=== PATIENT | male | born 1980 | race Caucasian/White ===

== ENCOUNTER → 2018-01-29 16:26 | Outpatient (CLI) | payer BC, SELFPAY | LOC: MFPLAB 16:29 → LABSPEC 16:39 | PROVIDERS: Family Provider Family Medicine; PCP Family Medicine; Visit Provider Family Medicine | DX: K52.9 Noninfective gastroenteritis and colitis, unspecified (principal) | CPT/HCPCS: 87177; 87209; 87493; 87506 ==

== ENCOUNTER → 2018-03-19 16:07 | Outpatient (CLI) | payer BC, SELFPAY ==
[2018-03-19 17:53] LABS: Absolute Lymphocyte Count 2.72 X10^3/ul (0.83-4.51); Absolute Neutrophil Count 4.7 X10^3/uL (2.0-7.7); Basophil# 0.03 X10^3/uL; Basophil% 0.4 % (0-1); Eosinophil# 0.24 X10^3/uL; Eosinophils% 2.8 % (0-5); Hematocrit 45.9 % (40-54); Hemoglobin 15.6 g/dl (13.0-16.5); Lymphocyte # 2.72 X10^3/ul (4.0); Lymphocyte % 31.9 % (19-41); Mean Corpuscular Hgb 29.7 pg (27.0-32.0); Mean Corpuscular Volume 87.3 fL (80-94); Mean Platelet Vol. 10.9 fl (6.2-12.0); Monocyte% 9.4 % (0-10); Neutrophil # 4.71 X10^3/uL (2.7-7.7); Neutrophil % 55.1 % (47-70); Platelet Count 250 K/mm3 (150-450); RBC Distribution Width CV 12.5 % (11.6-14.6); RBC Distribution Width SD 39.9 fl (35.1-43.9); Red Blood Count 5.26 M/mm3 (4.6-6.2); White Blood Count 8.5 K/mm3 (4.4-11.0)
[2018-03-19 17:54] LABS: POSITIVE COUNT NO; POSITIVE DIFFERENTIAL NO; POSITIVE MORPHOLOGY NO
== END ==
PROVIDERS: Family Provider Family Medicine; PCP Family Medicine; Visit Provider Family Medicine
DX: K92.2 Gastrointestinal hemorrhage, unspecified (principal)
CPT/HCPCS: 36415; 85025

== ENCOUNTER → 2019-03-28 10:19 | Outpatient (CLI) | payer BC, SELFPAY ==
--- NOTE | 2019-03-28 10:25 | RAD_ITS ---
STUDY: X-RAY - LEFT ANKLE REASON FOR EXAM: Male, 38 years old. Ankle pain, fall TECHNIQUE: 3 view(s) of the ankle. COMPARISON: None. FINDINGS: Normal visualized distal tibia and fibula. Normal medial and lateral malleoli. Normal tibiotalar articulation and ankle mortise. Normal visualized talus and calcaneus. The visualized subtalar, talonavicular, calcaneocuboid and tarsal articulations are normal. Lateral soft tissue swelling consistent with ligamentous injury. RAD/Ankle min 3 Views IMPRESSION: No fracture or dislocation. Lateral soft tissue swelling consistent with mesentery. Electronically Signed: Luis Sharma MD at 16:22 EDT Tel , Service support ,
== END ==
PROVIDERS: Family Provider Family Medicine; PCP Family Medicine; Referring Provider Family Medicine; Visit Provider Family Medicine
DX: M25.572 Pain in left ankle and joints of left foot (principal)
CPT/HCPCS: 73610

== ENCOUNTER 2019-09-05 17:47 | Emergency (ER) | payer BC, SELFPAY ==
[2019-09-05 17:48] VITALS: BP 148/103; PULSE 98; RESP 16; TEMP 36.7; O2SAT 98; BMI 30.5
[2019-09-05 17:57] VITALS: BP 148/103; PULSE 94; RESP 16; O2SAT 98
[2019-09-05 18:44] LABS: Absolute Lymphocyte Count 1.49 X10^3/uL (0.83-4.51); Absolute Neutrophil Count 4.5 X10^3/uL (2.0-7.7); Basophil# 0.05 X10^3/uL; Basophil% 0.7 % (0-1); Eosinophil# 0.15 X10^3/uL; Eosinophils% 2.2 % (0-5); Hematocrit 48.2 % (40-54); Hemoglobin 16.4 g/dL (13.0-16.5); Lymphocyte # 1.49 X10^3/ul (4.0); Lymphocyte % 22.2 % (19-41); Mean Corpuscular Hgb 29.9 pg (27.0-32.0); Mean Platelet Vol. 10.4 fl (6.2-12.0); Monocyte# 0.49 X10^3/uL; Monocyte% 7.3 % (0-10); NRBC Flagged by Analyzer 0 % (0-5); Neutrophil % 67.3 % (47-70); Platelet Count 270 K/mm3 (150-450); RBC Distribution Width CV 11.9 % (11.6-14.6); RBC Distribution Width SD 38.5 fl (35.1-43.9); Red Blood Count 5.48 M/mm3 (4.6-6.2); White Blood Count 6.7 K/mm3 (4.4-11.0)
--- NOTE | 2019-09-05 18:47 | ED.VIS.GEN ---
History of Present Illness Chief Complaint: Neuro S/Sx Informant: Patient Onset: Today Context: Sudden Onset Timing: Continuous Narrative: Patient is a 39-year-old male with history of anxiety and intrusive thoughts presenting for tremor and stuttering speech. Patient states it started around 4 PM, about an hour prior to arrival. He states he was at work when it started. Patient states that his anxiety has been worse today. He does not know why it is been worse though. He denies any particularly stressful things that happened at work. Patient had a similar episode in April and was evaluated in the ER. Patient states that starting lasted for about a day. He was instructed to follow-up with his primary care doctor but did not. Patient does comment that he started taking duloxetine yesterday. He is also on Abilify, nortriptyline and Seroquel as needed. He is currently out of his Seroquel. He is not sure what the dosages. Patient denies any associated vision changes, shortness of breath, chest pain, nausea, vomiting, GI or symptoms. States he has a mild headache that is typical for him. He denies any other complaints at this time. Past Medical History - Allergies and Home Meds Allergies/Adverse Reactions: Allergies No Known Allergies Allergy (Verified 09/05/19 18:52) Primary Care Physician: Fidel Dorantes MD [Primary Care Provider] - Past Medical History: - - Anxiety, psychiatric disorder Surgical History: noncontributory Lives: Spouse/ Significant Other Smoking Status: Never smoker Review of Systems General: Denies: Chills, Fever, Sweats Eyes: Denies: Visual changes - bilaterally, Diplopia ENT: Denies: Rhinorrhea, Sore throat Cardiovascular: Denies: Chest pain, Palpitations Respiratory: Denies: Dyspnea, Cough, Dyspnea on exertion Gastrointestinal: Denies: Abdominal pain, Nausea, Vomiting, Diarrhea, Melena, Hematochezia Genitourinary: Denies: Dysuria, Hematuria, Frequency Musculoskeletal: Denies: Back pain, Extremity Pain Skin: Denies: Rash, Wounds Neurological: Reports: - - Stuttering speech, tremor, -. Denies: Headache, Weakness, Numbness Psych: Reports: Anxiety. Denies: Depression, Suicidal thoughts Physical Exam Vital Signs/Narrative: Vital Signs Temp Pulse Resp BP Pulse Ox 09/05/19 17:57 94 16 148/103 H 98 09/05/19 17:48 98.0 F 98 16 148/103 H 98 Inital Vital Signs reviewed: Yes General: Well nourished, Well developed, No Acute Distress, - Head: Normocephalic, Atraumatic Eyes: Perrl, EOMI, - - No nystagmus ENT: Moist mucous membranes, No rhinorrhea, TM's clear Neck: Supple, Nontender Cardiovascular: Regular rate, Regular rhythm, No murmurs Respiratory: No distress, CTA bilaterally, Chest nontender Abdomen: Soft, Nontender, Nondistended, Normal bowel sounds Back: Nontender, Normal Inspection Extremities: Nontender, No edema Skin: Normal color, No rash Neurological: Alert, Oriented x3, Cranial nerves II-XII grossly intact, Normal Strength, Normal Sensation, - - Patient intermittently stutters but he has no word finding difficulties and his speech is clear. Intermittent intention tremor present. . Negative for: Confused, Disoriented, Left side facial droop, Right side facial droop Psychological: Normal affect, - - Anxious Diagnostic/Tx/Re-eval Laboratory Data 09/05/19 09/05/19 17:52 17:52 WBC 6.7 RBC 5.48 Hgb 16.4 Hct 48.2 MCV 88.0 MCH 29.9 MCHC 34.0 RDW Std Deviation 38.5 RDW Coeff of [place] 11.9 Plt Count 270 MPV 10.4 Immature Gran % (Auto) 0.300 Neut % (Auto) 67.3 Lymph % (Auto) 22.2 [place] % (Auto) 7.3 Eos % (Auto) 2.2 Baso % (Auto) 0.7 Absolute Neuts (auto) 4.5 Absolute Lymphs (auto) 1.49 Nucleated RBC % 0 Sodium 140 Potassium 3.8 Chloride 105 Carbon Dioxide 29.0 Anion Gap 6 BUN 13 Creatinine 1.18 Estim Creat Clear Calc 79.36 Est GFR (MDRD) Af Amer 89 Est GFR (MDRD) Non-Af 73 BUN/Creatinine Ratio 11.0 Glucose 93 Calcium 9.2 TSH 0.74 - Medical Decision Making Patient is evaluated for stuttering speech and tremor. It seems to be affiliated with his anxiety. Patient a similar episode earlier this year which resolved spontaneously. He never followed up with it. Patient is on multiple psychiatric medications. He did just start duloxetine. He does not have any physical exam findings concerning for serotonin syndrome or NMS including muscle rigidity or fever. This is not consistent with a stroke or seizure activity. He has a grossly normal neurologic exam. He does have some mildly stuttering speech and intermittent tremor that seems to improve with distraction. Patient does not have any significant electrolyte abnormalities, no signs of infection, normal TSH, CBC and BMP. I do not think a head CT is indicated as I suspect this is psychiatric. Patient is encouraged to continue taking his duloxetine. He is given a short course of Ativan for symptoms as he does not know his dosage of Seroquel. Patient states he is supposed to get a refill of his Seroquel in the next few days. Patient is counseled on signs and symptoms requiring return to the emergency room. Patient verbalizes agreement and understand this plan. Patient discharged home in stable and improved condition. ED Disposition - Plan for ED Patient: Disposition: Home or Assisted Living Diagnosis: Adult stuttering, Anxiety Instructions: Anxiety Reaction Prescriptions: ALPRAZolam [Xanax] 0.5 mg PO TID PRN PRN #6 tab PRN Reason: Anxiety Prescription Printed Referrals: Fidel Dorantes MD [Primary Care Provider] - Additional Instructions: I do not think you had a stroke today. I think the tremor and speech changes are from your anxiety. Continue take all of your medications as prescribed. You have been given a short course of Xanax to help with this. These call your primary care doctor's office tomorrow to set up a follow-up appointment next week.
[2019-09-05 18:50] VITALS: BP 138/89; PULSE 84; RESP 16; O2SAT 98
[2019-09-05] MEDS: 0.9% Normal Saline 1,000 ML 1000 ML IV (18:51)
[2019-09-05] MEDS: LORazepam 2 MG/ML Syringe 0.5 MG IV (18:51)
[2019-09-05 19:25] LABS: Anion Gap 6 (5-15); BUN 13 mg/dL (7-18); Calcium,Total 9.2 mg/dL (8.5-10.1); Chloride 105 mmol/L (98-107); Creatinine, Serum 1.18 mg/dL (0.70-1.30); EST Glomerular Filtration Rate 73 mL/min (>60); Est Glom Filt Rate - Afr Amer 89 mL/min (>60); Estimated Creatinine Clearance 79.36 ml/min; Glucose 93 mg/dL (74-106); Potassium 3.8 mmol/L (3.5-5.1); Sodium Level 140 mmol/L (136-145); Thyroid Stim Hormone (TSH) 0.74 uIU/mL (0.358-3.74)
[2019-09-05 20:00] VITALS: BP 139/95; PULSE 90; RESP 16; O2SAT 95
[2019-09-05 20:56] VITALS: BP 145/102; PULSE 102; RESP 20; O2SAT 97
== END 2019-09-05 20:57 | disposition home or self-care (01) ==
PROVIDERS: Emergency Provider Emergency Medicine; Family Provider Family Medicine; PCP Family Medicine
DX: F41.9 Anxiety disorder, unspecified (principal); F98.5 Adult onset fluency disorder; R25.1 Tremor, unspecified; Z79.899 Other long term (current) drug therapy
CPT/HCPCS: 80048; 84443; 85025; 96361; 96374; 99283; J7030; A4216

== ENCOUNTER → 2022-12-27 | Outpatient (CLI) | payer BC, SELFPAY ==
[2022-12-27 12:31] LABS: Absolute Lymphocyte Count 2.03 X10^3/uL (0.83-4.51); Basophil# 0.04 X10^3/uL; Basophil% 0.6 % (0-1); Eosinophil# 0.26 X10^3/uL; Eosinophils% 3.7 % (0-5); Hematocrit 45.1 % (40-54); Hemoglobin 15.3 g/dL (13.0-16.5); Lymphocyte # 2.03 X10^3/ul (0.83-4.51); Lymphocyte % 29.2 % (19-41); Mean Corp Hgb Conc 33.9 g/dL (32-36); Mean Corpuscular Hgb 29.5 pg (27.0-32.0); Mean Corpuscular Volume 87.1 fL (80-94); Mean Platelet Vol. 10.7 fl (6.2-12.0); Monocyte# 0.63 X10^3/uL; Monocyte% 9.1 % (0-10); NRBC Flagged by Analyzer 0 % (0-5); Neutrophil # 3.98 X10^3/uL (2.7-7.7); Neutrophil % 57.1 % (47-70); Platelet Count 295 K/mm3 (150-450); RBC Distribution Width SD 38.5 fl (35.1-43.9); Red Blood Count 5.18 M/mm3 (4.6-6.2)
[2022-12-27 12:51] LABS: Erythrocyte Sedimentation Rate 11 mm/hr (0-20)
[2022-12-27 13:13] LABS: ALB/GLOB Ratio 1.1 RATIO (0.9-2.4); AST(SGOT) 16 U/L (15-37); Alanine Aminotransfer ALT/SGPT 25 U/L (16-61); Albumin, Serum 3.8 g/dL (3.2-5.0); Alkaline Phosphatase 90 U/L (45-117); Anion Gap 3 (5-15); BUN 11 mg/dL (7-18); BUN/Creat Ratio 11.3 RATIO (10-20); Chloride 107 mmol/L (98-107); Creatinine, Serum 0.97 mg/dL (0.70-1.30); EST Glomerular Filtration Rate 90 mL/min (>60); Est Glom Filt Rate - Afr Amer 109 mL/min (>60); Globulin 3.5 g/dL (2.2-4.2); Glucose 92 mg/dL (74-106); LDH 162 U/L (87-241); Potassium 3.7 mmol/L (3.5-5.1); Protein, Total 7.3 g/dL (6.4-8.2); Sodium Level 137 mmol/L (136-145)
[2022-12-28 15:08] LABS: Endomysial Antibody IgA Negative (Negative)
[2022-12-28 16:10] LABS: Immunoglobulin A 155 mg/dL (90-386); t-Transglutaminase IgA <2 U/mL (0-3)
[2022-12-29 17:07] LABS: Albumin 3.8 g/dL (2.9-4.4); Alpha-1-Globulins 0.2 g/dL (0.0-0.4); Alpha-2-Globulins 0.7 g/dL (0.4-1.0); Cytoplasmic Ab (C-ANCA) <1:20 titer (Neg:<1:20); Gamma Globulin 1.2 g/dL (0.4-1.8); Immunoglobulin A 165 mg/dL (90-386); Immunoglobulin E 424 IU/mL (6-495); Immunoglobulin G 1171 mg/dL (603-1613); Immunoglobulin M 102 mg/dL (20-172)
[2022-12-30 06:08] LABS: Anti-Centromere B Ab <0.2 AI (0.0-0.9); Anti-Chromatin <0.2 AI (0.0-0.9); Anti-Jo <0.2 AI (0.0-0.9); Anti-Scleroderma-70 AB <0.2 AI (0.0-0.9); Beef 0.11 kU/L (Class 0/I); Corn 7.17 kU/L (Class IV); Egg, Whole <0.10 kU/L (Class 0); Milk (Cow) 0.12 kU/L (Class 0/I); Pork 0.13 kU/L (Class 0/I); RNP Ab 0.2 AI (0.0-0.9); SJOGREN'S Anti-SS-A test < 0.2 AI (0.0-0.9); SJOGREN'S Anti-SS-B test < 0.2 AI (0.0-0.9); Smith Ab <0.2 AI (0.0-0.9); Soybean 7.87 kU/L (Class IV); Wheat 9.34 kU/L (Class IV)
[2022-12-30 09:46] LABS: Perinuclear Ab (P-ANCA) <1:20 titer (Neg:<1:20)
[2022-12-30 14:50] LABS: Anti-dsDNA Ab <1 IU/mL (0-9); Chocolate 0.11 kU/L (Class 0/I)
== END | disposition home or self-care (01) ==
PROVIDERS: PCP Physician Assistant; Referring Provider Internal Medicine Gastroenterology; Visit Provider Internal Medicine Gastroenterology
DX: K52.9 Noninfective gastroenteritis and colitis, unspecified (principal)
CPT/HCPCS: 36415; 80053; 82784; 82785; 83516; 83615; 84165; 85025; 85652; 86003; 86005; 86140; 86225; 86235; 86255; 86256; 86334